=== PATIENT | male | born 1990 | race African-American/Black ===

== ENCOUNTER 2020-10-19 18:05 | Inpatient (IN) | payer OTHER ==
[~2020-10-19] VITALS: Ht 182.9 cm; Wt 66.9 kg
[2020-10-19] MEDS ORDERED: ONDANSETRON HCL 4MG/2ML INJ IV STA (18:50)
[2020-10-19] MEDS ORDERED: SODIUM CHLORIDE 0.9% 1,000 ML IV ONE ×3 (19:00→21:15)
[2020-10-19 19:34] LABS: HEMATOCRIT. 41.6 % (42.0-52.0); HEMOGLOBIN. 13.6 g/dL (14.0-18.0); MEAN CORPUSCULAR HEMOGLOBIN 29.1 pg (28.0-32.0); MEAN CORPUSCULAR VOLUME 88.7 fL (80.0-94.0); MEAN PLATELET VOLUME 9.3 fl (7.4-10.4); PLATELET 441 x1000/uL (130-400); RED BLOOD CELL COUNT 4.69 mill/uL (4.7-6.1); RED CELL DISTRIBUTION WIDTH 13.6 % (11.6-14.6)
[2020-10-19 19:37] LABS: CHLORIDE 80 mEq/L (98-107)
[2020-10-19 19:39] LABS: INR 1.1; PROTHROMBIN TIME 11.8 sec (9.6-11.0)
[2020-10-19 19:41] LABS: ETHANOL BLOOD < 10 mg/dL
[2020-10-19 19:45] LABS: BETA HYDROXYBUTYRATE 8.1 mMol/L (0.0-0.3)
[2020-10-19 20:21] LABS: PLATELET ESTIMATE INCREASED
[2020-10-19] MEDS ORDERED: LORAZEPAM 2MG/ML CPJ IV ONE (20:30)
[2020-10-19] MEDS ORDERED: INSULIN REGULAR (DRIP) 100 UNITS in SODIUM CHLORIDE 0.9% 99 ML IV ONE (21:15)
[2020-10-19] MEDS ORDERED: POTASSIUM CHLORIDE INJ 30 MEQ in DEXT 5%/0.9% NACL 1,000 ML IV ONE ×2 (21:15→21:30)
[2020-10-19 21:21] LABS: CLARITY URINE CLEAR (CLEAR); COLOR URINE YELLOW (YELLOW); KETONES URINE 4+ (NEGATIVE); LEUKOCYTE ESTERASE URINE NEGATIVE (NEGATIVE); NITRITE URINE NEGATIVE (NEGATIVE); OCCULT BLOOD URINE NEGATIVE (NEGATIVE); PH URINE 5.5 (4.5-8.0); PROTEIN URINE NEGATIVE (NEGATIVE); SPECIFIC GRAVITY URINE 1.023 (1.005-1.030); UROBILINOGEN URINE 0.2 E.U./dL (0.2-1.0)
[2020-10-19] MEDS ORDERED: INSULIN REGULAR (DRIP) 100 UNITS in SODIUM CHLORIDE 0.9% 99 ML IV SCH (21:30)
[2020-10-19 21:33] LABS: *AMPHETAMINES SCREEN URINE NEGATIVE (NEGATIVE); *BARBITURATES SCREEN URINE NEGATIVE (NEGATIVE); *BENZODIAZEPINES SCREEN URINE NEGATIVE (NEGATIVE); *COCAINE SCREEN URINE NEGATIVE (NEGATIVE)
[2020-10-19 21:34] LABS: CANNABINOID URINE SCREEN NEGATIVE (NEGATIVE); METHADONE URINE SCREEN NEGATIVE (NEGATIVE); OPIATES URINE SCREEN NEGATIVE (NEGATIVE); PHENCYCLIDINE URINE SCREEN NEGATIVE (NEGATIVE)
[2020-10-19] MEDS ORDERED: METOCLOPRAMIDE HCL 10MG/2ML VIAL IV ONE (21:45)
[2020-10-20] VITALS (7 sets, daily range): BP systolic 96–142; BP diastolic 61–84
[2020-10-20] MEDS: SODIUM CHLORIDE 0.9% 1,000 ML IV SCH ×4 (00:45→18:30)
[2020-10-20] MEDS ORDERED: DIPHENHYDRAMINE 50MG/ML VIAL IV PRN (00:45)
[2020-10-20] MEDS ORDERED: INSULIN REGULAR (DRIP) 100 UNITS in SODIUM CHLORIDE 0.9% 99 ML IV ONE (00:45)
[2020-10-20] MEDS ORDERED: METOCLOPRAMIDE HCL 10MG/2ML VIAL IV PRN (00:45)
[2020-10-20] MEDS ORDERED: DEXTROSE 50% WATER 50ML SYRINGE IV PRN ×3 (01:15→06:15)
[2020-10-20] MEDS: BLOOD SUGAR DIAGNOSTIC STRIP TEST SCH ×9 (01:30→20:00)
[2020-10-20] MEDS: ONDANSETRON HCL 4MG/2ML INJ IV PRN (01:37)
[2020-10-20] MEDS: LORAZEPAM 2MG/ML CPJ IV PRN ×2 (02:22→09:37)
[2020-10-20] MEDS ORDERED: INSULIN REGULAR (DRIP) 100 UNITS in SODIUM CHLORIDE 0.9% 100 ML IV SCH (05:00)
[2020-10-20 05:19] LABS: BASOPHILS % 0.8 % (0.0-2.0); HEMATOCRIT. 37.2 % (42.0-52.0); HEMOGLOBIN. 12.5 g/dL (14.0-18.0); LYMPHOCYTES % 10.6 % (20.0-50.0); MEAN CORPUSCULAR HEMOGLOBIN 28.6 pg (28.0-32.0); MEAN CORPUSCULAR VOLUME 85.4 fL (80.0-94.0); MONOCYTES % 10.8 % (2.0-8.0); NEUTROPHILS % 77.8 % (40.0-76.0); PLATELET 400 x1000/uL (130-400); RED BLOOD CELL COUNT 4.36 mill/uL (4.7-6.1); RED CELL DISTRIBUTION WIDTH 13.6 % (11.6-14.6)
[2020-10-20 05:21] LABS: CHLORIDE 105 mEq/L (98-107)
[2020-10-20] MEDS: INSULIN LISPRO (HIGH DOSE) 100 UNITS/ML SUBCUT SCH ×4 (06:31→21:09)
[2020-10-20] MEDS: PANTOPRAZOLE SODIUM 40 MG/VIAL IV SCH (09:37)
[2020-10-20] MEDS ORDERED: POTASSIUM PHOS,M-BASIC-D-BASIC 20 MMOL in DEXT 5% WATER 243.3333 ML IV SCH (12:00)
[2020-10-20] MEDS ORDERED: INFLUENZA VACCINE 05/PF 0.5 ML VIAL IM ONE (13:00)
[2020-10-20] MEDS ORDERED: SODIUM CHLORIDE 0.9% 1,000 ML IV SCH (14:51)
[2020-10-20] MEDS: POTASSIUM CHLORIDE 20MEQ TABLET SR PO SCH ×2 (16:14→21:06)
[2020-10-20] MEDS ORDERED: INSULIN GLARGINE UD 100 UNITS/ML SYR SUBCUT NR (18:30)
[2020-10-20] MEDS ORDERED: INSULIN GLARGINE UD 100 UNITS/ML SYR SUBCUT SCH (22:00)
[2020-10-21] MEDS: POTASSIUM CHLORIDE 20MEQ TABLET SR PO SCH (00:15)
[2020-10-21] MEDS ORDERED: POTASSIUM CHLORIDE 20MEQ TABLET SR PO SCH ×2 (00:15→12:00)
[2020-10-21] MEDS: INSULIN LISPRO (HIGH DOSE) 100 UNITS/ML SUBCUT SCH ×3 (00:48→08:00)
[2020-10-21] MEDS: SODIUM CHLORIDE 0.9% 1,000 ML IV SCH ×2 (02:30→08:00)
[2020-10-21] MEDS: BLOOD SUGAR DIAGNOSTIC STRIP TEST SCH ×3 (03:54→08:08)
[2020-10-21 06:49] LABS: CHLORIDE 101 mEq/L (98-107)
[2020-10-21 06:57] LABS: PHOSPHORUS 1.1 mg/dL (2.5-4.9)
[2020-10-21 07:03] LABS: BASOPHILS % 0.3 % (0.0-2.0); HEMATOCRIT. 32.6 % (42.0-52.0); HEMOGLOBIN. 11.1 g/dL (14.0-18.0); LYMPHOCYTES % 8.7 % (20.0-50.0); MEAN CORPUSCULAR HEMOGLOBIN 29.4 pg (28.0-32.0); MEAN CORPUSCULAR VOLUME 85.9 fL (80.0-94.0); MEAN PLATELET VOLUME 8.7 fl (7.4-10.4); MONOCYTES % 6.1 % (2.0-8.0); NEUTROPHILS % 84.9 % (40.0-76.0); PLATELET 278 x1000/uL (130-400); RED BLOOD CELL COUNT 3.79 mill/uL (4.7-6.1); RED CELL DISTRIBUTION WIDTH 13.6 % (11.6-14.6)
[2020-10-21] MEDS: PANTOPRAZOLE SODIUM 40 MG/VIAL IV SCH (09:48)
[2020-10-21] MEDS: ONDANSETRON HCL 4MG/2ML INJ IV PRN (10:53)
[2020-10-21] MEDS: LORAZEPAM 2MG/ML CPJ IV PRN (10:58)
[2020-10-21] MEDS ORDERED: FOLIC ACID 1MG TABLET PO SCH (11:00)
[2020-10-21] MEDS ORDERED: THIAMINE HCL 100MG TABLET PO SCH (11:00)
[2020-10-21] MEDS ORDERED: DEXTROSE 50% WATER 50ML SYRINGE IV PRN (12:00)
[2020-10-21] MEDS ORDERED: INSULIN LISPRO 100 UNITS/ML SUBCUT SCH (12:20)
[2020-10-21] MEDS ORDERED: POTASSIUM PHOS,M-BASIC-D-BASIC 30 MMOL in DEXT 5% WATER 500 ML IV SCH (13:00)
[2020-10-21] MEDS ORDERED: MAGNESIUM 4 G PREMIX 100 ML IV SCH (13:00)
[2020-10-21] MEDS ORDERED: BLOOD SUGAR DIAGNOSTIC STRIP TEST SCH (16:50)
[2020-10-21] MEDS ORDERED: INSULIN GLARGINE UD 100 UNITS/ML SYR SUBCUT SCH (22:00)
[2020-10-22] MEDS ORDERED: FAMOTIDINE 20MG/2ML VIAL IV SCH (09:00)
== END 2020-10-21 15:50 | disposition left against medical advice (07) | DRG 420 ==
LOC: ER 18:05 → 3WST 23:16 → EDBEDREQDT 10-20 06:07 → EDBEDREQTM 10-20 06:07 → EDBEDREQSVC 10-20 06:07 → ENRESERV 10-20 07:45 → 3WST 10-20 10:21
PROVIDERS: ADMIT Internal Medicine; ATTEND Internal Medicine
DX: E10.10 Type 1 diabetes mellitus with ketoacidosis without coma (principal); E83.39 Other disorders of phosphorus metabolism; E86.0 Dehydration; E87.1 Hypo-osmolality and hyponatremia; E87.6 Hypokalemia; E87.8 Other disorders of electrolyte and fluid balance, not elsewhere classified; E83.42 Hypomagnesemia; N17.9 Acute kidney failure, unspecified; Z53.29 Procedure and treatment not carried out because of patient's decision for other reasons; R65.10 Systemic inflammatory response syndrome (SIRS) of non-infectious origin without acute organ dysfunction; Z79.4 Long term (current) use of insulin
CPT/HCPCS: 36415; 71045; 80048; 80053; 80305; 80320; 81003; 82010; 82962; 83605; 83735; 84100; 85025; 86850; 86900; 90686; 93005; 96365; 99291; C9113; J1200; J1815; J2060; J2405; J2765; J3475; J3480; J3490; J7030; J7042; J7050; J7060; G0480

== ENCOUNTER 2020-12-07 09:32 | Inpatient (IN) | payer MEDICAID, OTHER ==
[~2020-12-07] VITALS: Ht 177.8 cm; Wt 45.9 kg
[2020-12-07] MEDS ORDERED: SODIUM CHLORIDE 0.9% 1,000 ML IV ONE ×2 (10:30→11:45)
[2020-12-07 10:50] LABS: BG BASE EXCESS -1.4 mmol/L (-2.0-2.0); BG CARBOXYHEMOGLOBIN 0.3 % (0.5-1.5); BG DEOXYHEMOGLOBIN 3.7 % (0.0-5.0); BG FRACTION INSPIRED OXYGEN 21; BG HCO3 ACT 19.5 mmol/L (22.0-26.0); BG METHEMOGLOBIN 0.1 % (0.0-1.5); BG OXYGEN SATURATION 96.3 % (92.0-98.5); BG OXYHEMOGLOBIN 95.9 % (94.0-97.0); BG PCO2 22.9 mmHg (35.0-45.0); BG PH 7.549 (7.350-7.450); BG PO2 81.4 mmHg (75.0-100.0); BG SAMPLE SITE RIGHT BRACHIAL; BG TOTAL HEMOGLOBIN 11.6 g/dL (12.0-18.0); BG VENT MODE ROOM AIR
[2020-12-07 11:10] LABS: HEMATOCRIT. 32.9 % (42.0-52.0); MEAN CORPUSCULAR HEMOGLOBIN 30.2 pg (28.0-32.0); MEAN CORPUSCULAR VOLUME 90.9 fL (80.0-94.0); MEAN PLATELET VOLUME 7.8 fl (7.4-10.4); PLATELET 921 x1000/uL (130-400); RED BLOOD CELL COUNT 3.62 mill/uL (4.7-6.1); RED CELL DISTRIBUTION WIDTH 13.5 % (11.6-14.6)
[2020-12-07 11:15] LABS: CHLORIDE 68 mEq/L (98-107)
[2020-12-07] MEDS ORDERED: INSULIN REGULAR (HUMULIN R) 300UNITS/3ML VIAL IV ONE (11:45)
[2020-12-07 11:47] LABS: BETA HYDROXYBUTYRATE 14.3 mMol/L (0.0-0.3)
[2020-12-07 11:54] LABS: PLATELET ESTIMATE MARKEDLY INCREASED
[2020-12-07 13:45] LABS: CLARITY URINE CLEAR (CLEAR); COLOR URINE YELLOW (YELLOW); KETONES URINE 4+ (NEGATIVE); LEUKOCYTE ESTERASE URINE NEGATIVE (NEGATIVE); NITRITE URINE NEGATIVE (NEGATIVE); OCCULT BLOOD URINE NEGATIVE (NEGATIVE); PROTEIN URINE NEGATIVE (NEGATIVE); SPECIFIC GRAVITY URINE 1.023 (1.005-1.030); UROBILINOGEN URINE 0.2 E.U./dL (0.2-1.0)
[2020-12-07] MEDS ORDERED: INSULIN LISPRO 100 UNITS/ML SUBCUT NR (16:00)
[2020-12-07] MEDS ORDERED: ONDANSETRON HCL 4MG/2ML INJ IV PRN (21:00)
[2020-12-07] MEDS ORDERED: DEXTROSE 50% WATER 50ML SYRINGE IV PRN (21:00)
[2020-12-07] MEDS ORDERED: ACETAMINOPHEN 325MG TABLET PO PRN (21:00)
[2020-12-07] MEDS: SODIUM CHLORIDE 0.9% 1,000 ML IV SCH (21:17)
[2020-12-07] MEDS ORDERED: CEFTRIAXONE 1 G PREMIX 50 ML IV SCH (21:30)
[2020-12-07] MEDS ORDERED: POTASSIUM CHLORIDE INJ 40 MEQ in DEXT 5% WATER 250 ML IV NR (22:00)
[2020-12-07] MEDS: ENOXAPARIN 30MG/0.3ML SYR SUBCUT SCH (22:57)
[2020-12-07] MEDS: INSULIN GLARGINE UD 100 UNITS/ML SYR SUBCUT SCH (23:10)
[2020-12-08] VITALS (10 sets, daily range): BP systolic 102–134; BP diastolic 53–81
[2020-12-08] MEDS ORDERED: BLOOD SUGAR DIAGNOSTIC STRIP TEST SCH
[2020-12-08] MEDS ORDERED: INSULIN LISPRO 100 UNITS/ML SUBCUT SCH
[2020-12-08] MEDS ORDERED: DEXTROSE 50% WATER 50ML SYRINGE IV PRN ×3 (01:45→10:30)
[2020-12-08] MEDS ORDERED: INSULIN REGULAR (DRIP) 100 UNITS in SODIUM CHLORIDE 0.9% 100 ML IV SCH (02:00)
[2020-12-08] MEDS: BLOOD SUGAR DIAGNOSTIC STRIP TEST SCH ×12 (02:00→20:51)
[2020-12-08] MEDS ORDERED: POTASSIUM CHLORIDE 20MEQ TABLET SR PO NR (02:00)
[2020-12-08 04:50] LABS: HEMATOCRIT. 34.5 % (42.0-52.0); HEMOGLOBIN. 11.5 g/dL (14.0-18.0); MEAN CORPUSCULAR HEMOGLOBIN 29.3 pg (28.0-32.0); MEAN CORPUSCULAR VOLUME 88.3 fL (80.0-94.0); MEAN PLATELET VOLUME 8.1 fl (7.4-10.4); PLATELET 932 x1000/uL (130-400); RED BLOOD CELL COUNT 3.91 mill/uL (4.7-6.1)
[2020-12-08] MEDS: SODIUM CHLORIDE 0.9% 1,000 ML IV SCH ×3 (05:09→20:48)
[2020-12-08 08:10] LABS: CHLORIDE 98 mEq/L (98-107)
[2020-12-08] MEDS: POTASSIUM CHLORIDE 20MEQ TABLET SR PO NR ×2 (10:30→12:46)
[2020-12-08 12:26] LABS: PLATELET ESTIMATE MARKEDLY INCREASED
[2020-12-08] MEDS: INSULIN LISPRO 100 UNITS/ML SUBCUT SCH ×6 (12:52→20:50)
[2020-12-08] MEDS ORDERED: POTASSIUM CHLORIDE INJ 40 MEQ in DEXT 5% WATER 250 ML IV NR (13:00)
[2020-12-08 13:17] LABS: CHLORIDE 90 mEq/L (98-107)
[2020-12-08] MEDS ORDERED: POTASSIUM CHLORIDE INJ 40 MEQ in DEXT 5% WATER 250 ML IV SCH (15:00)
[2020-12-08] MEDS: METOCLOPRAMIDE HCL 10MG/2ML VIAL IV SCH ×2 (15:02→21:17)
[2020-12-08 19:05] LABS: CHLORIDE 87 mEq/L (98-107)
[2020-12-08] MEDS: ENOXAPARIN 30MG/0.3ML SYR SUBCUT SCH (20:51)
[2020-12-08] MEDS ORDERED: POTASSIUM CHLORIDE INJ 40 MEQ in DEXT 5% WATER 250 ML IV ONE (21:00)
[2020-12-08] MEDS ORDERED: CEFTRIAXONE 1,000 MG in DEXTROSE 5% WATER 50 ML IV SCH (22:00)
[2020-12-08] MEDS: INSULIN GLARGINE UD 100 UNITS/ML SYR SUBCUT SCH (23:53)
[2020-12-09] VITALS (16 sets, daily range): BP systolic 105–129; BP diastolic 55–80
[2020-12-09] MEDS ORDERED: POTASSIUM CHLORIDE INJ 40 MEQ in DEXT 5% WATER 250 ML IV ONE (02:00)
[2020-12-09] MEDS: SODIUM CHLORIDE 0.9% 1,000 ML IV SCH ×3 (02:30→16:00)
[2020-12-09 05:42] LABS: HEMATOCRIT. 29.9 % (42.0-52.0); HEMOGLOBIN. 9.9 g/dL (14.0-18.0); MEAN CORPUSCULAR HEMOGLOBIN 29.1 pg (28.0-32.0); MEAN CORPUSCULAR VOLUME 87.5 fL (80.0-94.0); MEAN PLATELET VOLUME 7.8 fl (7.4-10.4); PLATELET 761 x1000/uL (130-400); RED BLOOD CELL COUNT 3.42 mill/uL (4.7-6.1)
[2020-12-09 05:59] LABS: CHLORIDE 91 mEq/L (98-107)
[2020-12-09] MEDS: METOCLOPRAMIDE HCL 10MG/2ML VIAL IV SCH ×2 (06:25→14:00)
[2020-12-09] MEDS: BLOOD SUGAR DIAGNOSTIC STRIP TEST SCH ×3 (08:13→17:38)
[2020-12-09] MEDS: INSULIN LISPRO 100 UNITS/ML SUBCUT SCH ×6 (08:23→18:32)
[2020-12-09] MEDS ORDERED: POTASSIUM CHLORIDE INJ 40 MEQ in DEXT 5% WATER 250 ML IV SCH (09:00)
[2020-12-09 10:58] LABS: PLATELET ESTIMATE INCREASED
== END 2020-12-09 19:35 | disposition home or self-care (01) | DRG 422 ==
LOC: ER 09:32 → MICUSO 12:47 → ENRESERV 13:43 → CANRESERV 13:43 → EDBEDREQSVC 22:35 → CVICU 12-08 06:25
PROVIDERS: ADMIT Internal Medicine; ATTEND Internal Medicine
DX: E87.6 Hypokalemia (principal); E86.0 Dehydration; N17.0 Acute kidney failure with tubular necrosis; A41.9 Sepsis, unspecified organism; E44.0 Moderate protein-calorie malnutrition; E87.3 Alkalosis; E10.22 Type 1 diabetes mellitus with diabetic chronic kidney disease; E10.65 Type 1 diabetes mellitus with hyperglycemia; K31.9 Disease of stomach and duodenum, unspecified; E86.1 Hypovolemia; R79.89 Other specified abnormal findings of blood chemistry; Z91.14 Patient's other noncompliance with medication regimen; Z79.4 Long term (current) use of insulin; Z91.19 Patient's noncompliance with other medical treatment and regimen; Z68.1 Body mass index [BMI] 19.9 or less, adult; N18.9 Chronic kidney disease, unspecified
CPT/HCPCS: 36415; 36600; 71045; 74018; 80048; 80053; 81003; 82010; 82375; 82805; 82962; 83036; 83735; 85025; 93005; 93970; 99285; J0696; J1650; J1815; J2405; J2765; J3480; J7030; J7050; J7060

== ENCOUNTER 2021-11-28 16:40 | Emergency (ER) | payer MEDICAID ==
[~2021-11-28] VITALS: Ht 177.8 cm; Wt 73.0 kg
[~2021-11-28 16:40] MED LIST: CLON2TAB21 MT; INSU100I28 SQ
[2021-11-28] MEDS ORDERED: CLONIDINE 0.1MG TABLET PO ONE (17:00)
[2021-11-28] MEDS ORDERED: FAMOTIDINE 20MG TABLET PO ONE (17:00)
[2021-11-28] MEDS ORDERED: ONDANSETRON 4MG ODT PO ONE (17:00)
[2021-11-28] MEDS ORDERED: SODIUM CHLORIDE 0.9% 1,000 ML IV ONE (20:30)
[2021-11-28] MEDS ORDERED: INSULIN REGULAR (HUMULIN R) 300UNITS/3ML VIAL IV ONE (20:45)
[2021-11-28] MEDS ORDERED: INSU100I28 SQ ×3 (22:21→22:25)
[2021-11-28] MEDS ORDERED: INSU100I13 SQ ×3 (22:21→22:25)
[2021-11-28 23:10] VITALS: BP 138/72
== END 2021-11-28 23:15 | disposition home or self-care (01) ==
LOC: ER 16:40
DX: T40.2X1A Poisoning by other opioids, accidental (unintentional), initial encounter (principal); Y92.89 Other specified places as the place of occurrence of the external cause; E11.9 Type 2 diabetes mellitus without complications; F12.10 Cannabis abuse, uncomplicated; F15.10 Other stimulant abuse, uncomplicated
CPT/HCPCS: 82962; 96361; 96374; 99285; J1815; J7030; Q0162

== ENCOUNTER 2021-12-09 09:34 | Inpatient (IN) | payer MEDICAID ==
[~2021-12-09] VITALS: Ht 175.3 cm; Wt 64.4 kg
[~2021-12-09 09:34] MED LIST changes: +INSU100I13 SQ
[2021-12-09 10:55] LABS: HEMATOCRIT. 29.7 % (42.0-52.0); HEMOGLOBIN. 9.3 g/dL (14.0-18.0); MEAN CORPUSCULAR HEMOGLOBIN 20.6 pg (28.0-32.0); MEAN CORPUSCULAR VOLUME 65.9 fL (80.0-94.0); MEAN PLATELET VOLUME 7.7 fl (7.4-10.4); PLATELET 526 x1000/uL (130-400); RED BLOOD CELL COUNT 4.51 mill/uL (4.7-6.1); RED CELL DISTRIBUTION WIDTH 18.4 % (11.6-14.6)
[2021-12-09 11:02] LABS: CHLORIDE 91 mEq/L (98-107)
[2021-12-09] MEDS ORDERED: CLINDAMYCIN HCL 150MG CAPSULE PO STA (11:07)
[2021-12-09 11:16] LABS: PLATELET ESTIMATE INCREASED
[2021-12-09] MEDS ORDERED: PIPERACILLIN/TAZ 3.375G PREMIX 50 ML IV ONE (11:45)
[2021-12-09] MEDS ORDERED: VANCOMYCIN 1G PREMIX 200 ML IV ONE (11:45)
[2021-12-09] MEDS ORDERED: SODIUM CHLORIDE 0.9% 1000ML BAG (SEPSIS BOLUS) IV ONE (11:45)
[2021-12-09 13:45] LABS: CLARITY URINE CLEAR (CLEAR); COLOR URINE YELLOW (YELLOW); KETONES URINE 1+ (NEGATIVE); LEUKOCYTE ESTERASE URINE NEGATIVE (NEGATIVE); NITRITE URINE NEGATIVE (NEGATIVE); OCCULT BLOOD URINE NEGATIVE (NEGATIVE); PROTEIN URINE 1+ (NEGATIVE); SPECIFIC GRAVITY URINE 1.023 (1.005-1.030); UROBILINOGEN URINE 0.2 E.U./dL (0.2-1.0)
[2021-12-09] MEDS ORDERED: INSULIN LISPRO 100 UNITS/ML SUBCUT NR ×2 (15:45→20:45)
[2021-12-09 17:00] VITALS: BP 141/82
[2021-12-09] MEDS ORDERED: LEVOFLOXACIN 500MG PREMIX 100 ML IV NR ×2 (17:00→20:00)
[2021-12-09] MEDS ORDERED: ONDANSETRON HCL 4MG/2ML INJ IV PRN (17:00)
[2021-12-09] MEDS ORDERED: ACETAMINOPHEN 325MG TABLET PO PRN (17:00)
[2021-12-09] MEDS ORDERED: INSULIN GLARGINE 100 UNITS/ML SUBCUT NR (17:00)
[2021-12-09] MEDS: BLOOD SUGAR DIAGNOSTIC STRIP TEST SCH ×2 (17:00→21:00)
[2021-12-09] MEDS ORDERED: DEXTROSE 50% WATER 50ML SYRINGE IV PRN (17:00)
[2021-12-09] MEDS: INSULIN LISPRO 100 UNITS/ML SUBCUT SCH ×2 (17:32→21:00)
[2021-12-09] MEDS: HYDROCODONE/ACETAMINOPHEN 5/325MG TABLET PO PRN ×2 (19:21→22:52)
[2021-12-09 19:57] VITALS: BP 130/70
[2021-12-09] MEDS ORDERED: VANCOMYCIN 1GM PMX (XELLIA) 200 ML IV NR (20:00)
[2021-12-09] MEDS ORDERED: NALOXONE HCL 0.4MG/ML VIAL IV PRN (21:00)
[2021-12-09 21:04] LABS: *AMPHETAMINES SCREEN URINE NEGATIVE (NEGATIVE); *BARBITURATES SCREEN URINE NEGATIVE (NEGATIVE); *BENZODIAZEPINES SCREEN URINE NEGATIVE (NEGATIVE)
[2021-12-09 21:05] LABS: *COCAINE SCREEN URINE NEGATIVE (NEGATIVE); CANNABINOID URINE SCREEN NEGATIVE (NEGATIVE); METHADONE URINE SCREEN NEGATIVE (NEGATIVE); OPIATES URINE SCREEN NEGATIVE (NEGATIVE); PHENCYCLIDINE URINE SCREEN NEGATIVE (NEGATIVE)
[2021-12-09] MEDS: INSULIN GLARGINE 100 UNITS/ML SUBCUT SCH (23:08)
[2021-12-10] MEDS: HYDROCODONE/ACETAMINOPHEN 5/325MG TABLET PO PRN ×3 (03:10→17:36)
[2021-12-10 04:00] VITALS: BP 140/80
[2021-12-10] MEDS ORDERED: VANCOMYCIN 750MG PMX (XELLIA) 150 ML IV SCH (04:00)
[2021-12-10] MEDS: BLOOD SUGAR DIAGNOSTIC STRIP TEST SCH ×4 (06:44→21:09)
[2021-12-10] MEDS: INSULIN LISPRO 100 UNITS/ML SUBCUT SCH ×7 (07:10→21:29)
[2021-12-10] MEDS ORDERED: INSULIN LISPRO 100 UNITS/ML SUBCUT NR ×2 (07:45→21:15)
[2021-12-10] MEDS: SODIUM CHLORIDE 0.9% 1,000 ML IV SCH ×2 (08:13→21:30)
[2021-12-10] MEDS: INSULIN GLARGINE 100 UNITS/ML SUBCUT SCH ×2 (10:10→21:28)
[2021-12-10] MEDS: KETOROLAC 30MG/ML VIAL IV PRN (15:15)
[2021-12-10] MEDS: VANCOMYCIN 1GM PMX (XELLIA) 200 ML IV SCH (21:27)
[2021-12-11] MEDS: HYDROCODONE/ACETAMINOPHEN 5/325MG TABLET PO PRN ×2 (02:22→09:24)
[2021-12-11] MEDS: KETOROLAC 30MG/ML VIAL IV PRN ×3 (03:22→23:55)
[2021-12-11 03:30] VITALS: BP 142/82
[2021-12-11] MEDS: INSULIN LISPRO 100 UNITS/ML SUBCUT SCH ×7 (06:40→21:55)
[2021-12-11] MEDS: BLOOD SUGAR DIAGNOSTIC STRIP TEST SCH ×4 (06:40→21:55)
[2021-12-11 08:00] VITALS: BP 100/74
[2021-12-11] MEDS: GLIPIZIDE 10MG TABLET PO SCH (09:24)
[2021-12-11] MEDS: SODIUM CHLORIDE 0.9% 1,000 ML IV SCH (10:57)
[2021-12-11] MEDS: INSULIN GLARGINE 100 UNITS/ML SUBCUT SCH ×2 (11:02→21:54)
[2021-12-11 12:00] VITALS: BP 140/69
[2021-12-11] MEDS ORDERED: LORAZEPAM 2MG/ML CPJ IV NR (12:45)
[2021-12-11] MEDS ORDERED: INSULIN LISPRO 100 UNITS/ML SUBCUT NR (14:30)
[2021-12-11 15:55] LABS: HEMATOCRIT. 29.1 % (42.0-52.0); HEMOGLOBIN. 8.8 g/dL (14.0-18.0); MEAN CORPUSCULAR HEMOGLOBIN 20.5 pg (28.0-32.0); MEAN CORPUSCULAR VOLUME 67.8 fL (80.0-94.0); PLATELET 515 x1000/uL (130-400); RED BLOOD CELL COUNT 4.29 mill/uL (4.7-6.1)
[2021-12-11 16:00] VITALS: BP 110/65
[2021-12-11 16:00] LABS: CHLORIDE 92 mEq/L (98-107)
[2021-12-11 18:07] LABS: PLATELET ESTIMATE INCREASED
[2021-12-11] MEDS: CITALOPRAM HYDROBROMIDE 10MG TABLET PO SCH (18:26)
[2021-12-11] MEDS: VANCOMYCIN 1GM PMX (XELLIA) 200 ML IV SCH (18:26)
[2021-12-11 20:00] VITALS: BP 120/63
[2021-12-11] MEDS: BUSPIRONE HCL 5MG TABLET PO SCH (21:55)
[2021-12-12] VITALS: BP 125/71
[2021-12-12 04:00] VITALS: BP 129/72
[2021-12-12] MEDS: HYDROCODONE/ACETAMINOPHEN 5/325MG TABLET PO PRN ×4 (04:56→21:41)
[2021-12-12] MEDS: BLOOD SUGAR DIAGNOSTIC STRIP TEST SCH ×4 (06:40→21:42)
[2021-12-12 08:00] VITALS: BP 124/71
[2021-12-12] MEDS: VANCOMYCIN 1GM PMX (XELLIA) 200 ML IV SCH (10:45)
[2021-12-12] MEDS: CITALOPRAM HYDROBROMIDE 10MG TABLET PO SCH (10:46)
[2021-12-12] MEDS: GLIPIZIDE 10MG TABLET PO SCH (10:46)
[2021-12-12] MEDS: BUSPIRONE HCL 5MG TABLET PO SCH (10:46)
[2021-12-12] MEDS: SODIUM CHLORIDE 0.9% 1,000 ML IV SCH (10:47)
[2021-12-12] MEDS: INSULIN LISPRO 100 UNITS/ML SUBCUT SCH ×7 (10:58→21:38)
[2021-12-12] MEDS: INSULIN GLARGINE 100 UNITS/ML SUBCUT SCH ×2 (11:02→21:38)
[2021-12-12] MEDS: KETOROLAC 30MG/ML VIAL IV PRN ×2 (13:37→20:30)
[2021-12-12 16:00] VITALS: BP 117/70
[2021-12-12] MEDS: BUSPIRONE HCL 10MG TABLET PO SCH (20:30)
[2021-12-13 00:05] VITALS: BP 132/76
[2021-12-13] MEDS: VANCOMYCIN 1GM PMX (XELLIA) 200 ML IV SCH ×2 (03:12→20:19)
[2021-12-13] MEDS: KETOROLAC 30MG/ML VIAL IV PRN (03:13)
[2021-12-13] MEDS: SODIUM CHLORIDE 0.9% 1,000 ML IV SCH ×2 (03:15→15:50)
[2021-12-13] MEDS: INSULIN LISPRO 100 UNITS/ML SUBCUT SCH ×7 (05:48→21:15)
[2021-12-13] MEDS: BLOOD SUGAR DIAGNOSTIC STRIP TEST SCH ×4 (05:49→21:16)
[2021-12-13] MEDS: GLIPIZIDE 10MG TABLET PO SCH (05:50)
[2021-12-13] MEDS: HYDROCODONE/ACETAMINOPHEN 5/325MG TABLET PO PRN ×2 (05:50→17:54)
[2021-12-13] MEDS: CITALOPRAM HYDROBROMIDE 10MG TABLET PO SCH (09:00)
[2021-12-13] MEDS: BUSPIRONE HCL 10MG TABLET PO SCH ×2 (09:00→20:20)
[2021-12-13] MEDS: INSULIN GLARGINE 100 UNITS/ML SUBCUT SCH ×2 (11:46→21:16)
[2021-12-13] MEDS ORDERED: KETOROLAC 30MG/ML VIAL IV PRN (20:00)
[2021-12-13] MEDS ORDERED: LINE600T14 MT (20:06)
[2021-12-13] MEDS ORDERED: LORAZEPAM 0.5MG TABLET PO PRN (21:15)
[2021-12-14] MEDS: GLIPIZIDE 10MG TABLET PO SCH (05:42)
[2021-12-14] MEDS: INSULIN LISPRO 100 UNITS/ML SUBCUT SCH ×4 (06:40→13:14)
[2021-12-14] MEDS: BLOOD SUGAR DIAGNOSTIC STRIP TEST SCH ×2 (06:40→11:40)
[2021-12-14] MEDS ORDERED: LANTUSUD SUBCUT (08:36)
[2021-12-14] MEDS: BUSPIRONE HCL 10MG TABLET PO SCH (09:17)
[2021-12-14] MEDS: CITALOPRAM HYDROBROMIDE 10MG TABLET PO SCH (09:17)
[2021-12-14] MEDS: INSULIN GLARGINE 100 UNITS/ML SUBCUT SCH (10:24)
[2021-12-14 12:00] VITALS: BP 113/67
[2021-12-14 12:01] VITALS: BP 113/67
== END 2021-12-14 15:00 | disposition home or self-care (01) | DRG 720 ==
LOC: ER 09:34 → ENRESERV 15:43 → 7EST 17:31
PROVIDERS: ADMIT Internal Medicine; ATTEND Internal Medicine
DX: A41.02 Sepsis due to Methicillin resistant Staphylococcus aureus (principal); E44.0 Moderate protein-calorie malnutrition; E87.8 Other disorders of electrolyte and fluid balance, not elsewhere classified; E87.1 Hypo-osmolality and hyponatremia; F33.1 Major depressive disorder, recurrent, moderate; L03.312 Cellulitis of back [any part except buttock and flank]; E11.65 Type 2 diabetes mellitus with hyperglycemia; D50.9 Iron deficiency anemia, unspecified; F41.9 Anxiety disorder, unspecified; F43.10 Post-traumatic stress disorder, unspecified; Z68.21 Body mass index [BMI] 21.0-21.9, adult; Z91.018 Allergy to other foods; Z79.4 Long term (current) use of insulin; Z79.899 Other long term (current) drug therapy; Z91.19 Patient's noncompliance with other medical treatment and regimen; Z83.3 Family history of diabetes mellitus; Z82.49 Family history of ischemic heart disease and other diseases of the circulatory system
CPT/HCPCS: 36415; 71045; 80048; 80053; 80202; 80305; 81003; 82962; 83605; 84145; 85025; 87077; 87186; 93005; 99285; C1893; J1815; J1885; J1956; J2060; J2543; J3370; J7030